=== PATIENT | female | born 1985 | race Caucasian/White ===

== ENCOUNTER → 2016-07-03 | Outpatient (CLI) | payer OTHER ==
--- NOTE | 2016-07-03 14:59 | Diagnostic Imaging Report ---
INDICATION: Dysfunctional uterine bleeding. COMPARISON: None. DISCUSSION: Transabdominal and transvaginal sonographic evaluation of the pelvis was performed. The uterus is normal in echotexture and size measuring 8.3 x 4.3 x 3.5 cm. Normal endometrial thickness measuring 0.4 cm. The ovaries appear normal in echotexture and size bilaterally with normal color Doppler blood flow. The right ovary measures 3.6 x 2.0 x 1.6 cm. The left ovary measures 3.1 x 1.7 x 1.9 cm. Prominent veins are noted within the bilateral adnexa which could be seen with chronic pelvic congestive syndrome in the appropriate clinical setting. No abnormal adnexal mass or fluid. IMPRESSION: 1. No sonographic abnormality is identified within the pelvis to explain the dysfunctional uterine bleeding. 2. Incidental note of prominent veins within the bilateral adnexa which could be associated with pelvic congestive syndrome in the appropriate clinical setting. Dictated by: Dictated on workstation # [id number]
== END ==
LOC: RAD 13:32
PROVIDERS: ATTEND Family Medicine
DX: N93.9 Abnormal uterine and vaginal bleeding, unspecified (principal)
CPT/HCPCS: 76830; 76856

== ENCOUNTER 2019-07-09 23:37 | Emergency (ER) | payer SELFPAY ==
[~2019-07-09] VITALS: Ht 167.7 cm; Wt 63.5 kg
[2019-07-10] MEDS ORDERED: methylPREDNISolone 125 MG (Solu-MEDROL) VIAL IM ONE (00:15)
[2019-07-10] MEDS ORDERED: diphenhydrAMINE 50 MG/ML INJ (BENADRYL) IVP ONE (00:15)
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
[2019-07-10] MEDS ORDERED: diphenhydrAMINE 50 MG/ML INJ (BENADRYL) IM ONE (00:30)
[2019-07-10 01:11] LABS: HEMOGLOBIN 11.9 G/DL (11.5-16.0); MEAN CORPUSCULAR HEMOGLOBIN 28 PG (25-34); WHITE BLOOD COUNT 11.4 10^3/uL (4.3-11.0)
[2019-07-10 01:12] LABS: BASOPHILS % (AUTO) 0 % (0-10); EOSINOPHILS # (AUTO) 0.8 10^3/uL (0.0-0.3); EOSINOPHILS % (AUTO) 7 % (0-10); HEMATOCRIT 37 % (35-52); LYMPHOCYTES # (AUTO) 1.7 X 10^3 (1.0-4.0); LYMPHOCYTES % (AUTO) 15 % (12-44); MEAN CORPUSCULAR HGB CONC 32 G/DL (32-36); MEAN CORPUSCULAR VOLUME 87 FL (80-99); MEAN PLATELET VOLUME 10.8 FL (7.4-10.4); MONOCYTES # (AUTO) 0.8 X 10^3 (0.0-1.0); MONOCYTES % (AUTO) 7 % (0-12); NEUTROPHILS # (AUTO) 8.1 X 10^3 (1.8-7.8); NEUTROPHILS % (AUTO) 71 % (42-75); PLATELET COUNT 437 10^3/uL (130-400); RED CELL DISTRIBUTION WIDTH 14.7 % (10.0-14.5)
[2019-07-10 01:21] LABS: BAND NEUTROPHILS 6 %; BASOPHILS % (MANUAL) 0 %; EOSINOPHILS % (MANUAL) 8 %; HYPOCHROMASIA 1+; LYMPHOCYTES % (MANUAL) 17 %; MONOCYTES % (MANUAL) 6 %; NEUTROPHILS % (MANUAL) 63 %
[2019-07-10 01:22] LABS: BILIRUBIN,TOTAL 0.2 MG/DL (0.1-1.0); BUN/CREATININE RATIO 25; CALCIUM 8.4 MG/DL (8.5-10.1); CARBON DIOXIDE 23 MMOL/L (21-32); CHLORIDE 105 MMOL/L (98-107); CREATININE SERUM 0.72 MG/DL (0.60-1.30); GFR ESTIMATED > 60; GLUCOSE 97 MG/DL (70-105); POTASSIUM 4.7 MMOL/L (3.6-5.0); SODIUM 140 MMOL/L (135-145)
[2019-07-10 01:23] LABS: ALANINE AMINOTRANSFERASE 17 U/L (0-55); ALBUMIN 3.8 GM/DL (3.2-4.5); ALKALINE PHOSPHATASE 68 U/L (40-136); TOTAL PROTEIN 6.3 GM/DL (6.4-8.2)
[2019-07-10 01:24] LABS: BILIRUBIN,URINE NEGATIVE (NEGATIVE); CLARITY,URINE SL CLOUDY; COLOR,URINE DARK YELLOW; GLUCOSE, URINE (UA) NEGATIVE (NEGATIVE); KETONES,URINE NEGATIVE (NEGATIVE); LEUKOCYTE ESTERASE ,URINE 1+ (NEGATIVE); NITRITE,URINE NEGATIVE (NEGATIVE); PROTEIN,URINE NEGATIVE (NEGATIVE)
[2019-07-10 01:25] LABS: AMPHETAMINE SCREEN, URINE NEGATIVE (NEGATIVE); BACTERIA,URINE FEW /HPF; BARBITURATE SCREEN URINE NEGATIVE (NEGATIVE); BENZODIAZEPINES SCREEN URINE NEGATIVE (NEGATIVE); CANNABINOID SCREEN, URINE NEGATIVE (NEGATIVE); COCAINE SCREEN URINE NEGATIVE (NEGATIVE); HCG,QUALITATIVE URINE NEGATIVE (NEGATIVE); METHADONE STAT NEGATIVE (NEGATIVE); METHAMPHETAMINE SCREEN URINE S NEGATIVE (NEGATIVE); OPIATE SCREEN URINE NEGATIVE (NEGATIVE); OXYCODONE STAT NEGATIVE (NEGATIVE); PROPOXYPHENE STAT NEGATIVE (NEGATIVE); TRICYCLIC ANTIDEPRESSANTS SCRE NEGATIVE (NEGATIVE)
[2019-07-10] MEDS ORDERED: PRD20T PO (01:44)
[2019-07-10] MEDS ORDERED: [UNRECOGNIZED DRUG - CODE] IV (01:44)
[2019-07-10 01:52] VITALS: BP 118/69
== END 2019-07-10 01:52 | disposition home or self-care (01) ==
LOC: EDUNIT# 23:37 → ER FS 23:39
DX: L23.9 Allergic contact dermatitis, unspecified cause (principal); L20.9 Atopic dermatitis, unspecified; N39.0 Urinary tract infection, site not specified; Z88.2 Allergy status to sulfonamides
CPT/HCPCS: 36415; 80053; 80306; 81000; 84703; 85007; 85027; 87088; 96372

== ENCOUNTER 2019-11-12 19:52 | Emergency (ER) | payer SELFPAY ==
[~2019-11-12 19:52] MED LIST: PRD20T PO; [UNRECOGNIZED DRUG - CODE] IV
[2019-11-13 11:21] LABS: CARBON DIOXIDE 20 MMOL/L (21-32); CHLORIDE 101 MMOL/L (98-107); POTASSIUM 3.3 MMOL/L (3.6-5.0); SODIUM 136 MMOL/L (135-145)
[2019-11-13 11:22] LABS: ACETAMINOPHEN < 10 UG/ML (10-30); ALANINE AMINOTRANSFERASE 9 U/L (0-55); ALBUMIN 4.7 GM/DL (3.2-4.5); ALKALINE PHOSPHATASE 59 U/L (40-136); BILIRUBIN,TOTAL 0.5 MG/DL (0.1-1.0); BUN/CREATININE RATIO 21; CALCIUM 9.1 MG/DL (8.5-10.1); CREATININE SERUM 0.75 MG/DL (0.60-1.30); GFR ESTIMATED > 60; GLUCOSE 130 MG/DL (70-105)
[2019-11-13 11:24] LABS: BASOPHILS % (AUTO) 1 % (0-10); EOSINOPHILS % (AUTO) 1 % (0-10); HEMATOCRIT 40 % (35-52); HEMOGLOBIN 13.4 G/DL (11.5-16.0); LYMPHOCYTES % (AUTO) 28 % (12-44); MEAN CORPUSCULAR HEMOGLOBIN 26 PG (25-34); MEAN CORPUSCULAR HGB CONC 33 G/DL (32-36); MEAN CORPUSCULAR VOLUME 80 FL (80-99); MEAN PLATELET VOLUME 10.6 FL (7.4-10.4); MONOCYTES % (AUTO) 9 % (0-12); NEUTROPHILS % (AUTO) 62 % (42-75); PLATELET COUNT 336 10^3/uL (130-400); RED CELL DISTRIBUTION WIDTH 14.1 % (10.0-14.5); WHITE BLOOD COUNT 8.6 10^3/uL (4.3-11.0)
[2019-11-13 11:25] LABS: BASOPHILS # (AUTO) 0.1 10^3/uL (0.0-0.1); EOSINOPHILS # (AUTO) 0.1 10^3/uL (0.0-0.3); LYMPHOCYTES # (AUTO) 2.4 X 10^3 (1.0-4.0); MONOCYTES # (AUTO) 0.8 X 10^3 (0.0-1.0); NEUTROPHILS # (AUTO) 5.3 X 10^3 (1.8-7.8)
[2019-11-13 11:26] LABS: BILIRUBIN,URINE NEGATIVE (NEGATIVE); CLARITY,URINE CLEAR; COLOR,URINE YELLOW; GLUCOSE, URINE (UA) NEGATIVE (NEGATIVE); KETONES,URINE TRACE (NEGATIVE); LEUKOCYTE ESTERASE ,URINE NEGATIVE (NEGATIVE); NITRITE,URINE NEGATIVE (NEGATIVE); PROTEIN,URINE NEGATIVE (NEGATIVE)
[2019-11-13 11:27] LABS: BACTERIA,URINE LARGE /HPF
[2019-11-13 11:28] LABS: AMPHETAMINE SCREEN, URINE NEGATIVE (NEGATIVE); BARBITURATE SCREEN URINE NEGATIVE (NEGATIVE); BENZODIAZEPINES SCREEN URINE NEGATIVE (NEGATIVE); CANNABINOID SCREEN, URINE NEGATIVE (NEGATIVE); COCAINE SCREEN URINE NEGATIVE (NEGATIVE); HCG,QUALITATIVE URINE NEGATIVE (NEGATIVE); METHADONE STAT NEGATIVE (NEGATIVE); METHAMPHETAMINE SCREEN URINE S NEGATIVE (NEGATIVE); OPIATE SCREEN URINE NEGATIVE (NEGATIVE); OXYCODONE STAT NEGATIVE (NEGATIVE); PROPOXYPHENE STAT NEGATIVE (NEGATIVE); TRICYCLIC ANTIDEPRESSANTS SCRE NEGATIVE (NEGATIVE)
== END 2019-11-13 04:10 | disposition home or self-care (01) ==
LOC: ER FS 19:52
DX: F20.0 Paranoid schizophrenia (principal)
CPT/HCPCS: 36415; 80053; 80306; 81000; 84703; 85025; 99282; G0480 ×2; 80320; 80329

== ENCOUNTER 2020-11-27 09:15 | Emergency (ER) | payer SELFPAY ==
[~2020-11-27] VITALS: Ht 167.7 cm; Wt 52.2 kg
[2020-11-27 09:15] VITALS: BP 117/90
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
[2020-11-27 09:37] LABS: BILIRUBIN,URINE NEGATIVE (NEGATIVE); CLARITY,URINE CLEAR; COLOR,URINE YELLOW; GLUCOSE, URINE (UA) NEGATIVE (NEGATIVE); HCG,QUALITATIVE URINE NEGATIVE (NEGATIVE); KETONES,URINE NEGATIVE (NEGATIVE); LEUKOCYTE ESTERASE ,URINE 1+ (NEGATIVE); NITRITE,URINE NEGATIVE (NEGATIVE); PROTEIN,URINE NEGATIVE (NEGATIVE)
[2020-11-27 09:38] LABS: BACTERIA,URINE MODERATE /HPF
[2020-11-27 09:48] LABS: AMPHETAMINE SCREEN, URINE POSITIVE (NEGATIVE); BARBITURATE SCREEN URINE NEGATIVE (NEGATIVE); BENZODIAZEPINES SCREEN URINE NEGATIVE (NEGATIVE); CANNABINOID SCREEN, URINE NEGATIVE (NEGATIVE); COCAINE SCREEN URINE NEGATIVE (NEGATIVE); METHADONE STAT NEGATIVE (NEGATIVE); METHAMPHETAMINE SCREEN URINE S POSITIVE (NEGATIVE); OPIATE SCREEN URINE NEGATIVE (NEGATIVE); OXYCODONE STAT NEGATIVE (NEGATIVE); PROPOXYPHENE STAT NEGATIVE (NEGATIVE); TRICYCLIC ANTIDEPRESSANTS SCRE NEGATIVE (NEGATIVE)
[2020-11-27] MEDS ORDERED: ACETAMINOPHEN 500 MG TAB (TYLENOL) PO ONE (10:45)
== END 2020-11-27 11:33 | disposition home or self-care (01) ==
LOC: EDUNIT# 09:15 → ER FS 09:16
DX: F15.10 Other stimulant abuse, uncomplicated (principal); Z79.52 Long term (current) use of systemic steroids
CPT/HCPCS: 80306; 81000; 84703; 87088; 99283

== ENCOUNTER 2021-04-19 13:01 | Emergency (ER) | payer SELFPAY ==
[2021-04-19 13:30] VITALS: BP 141/98
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
== END 2021-04-19 13:47 | disposition home or self-care (01) ==
LOC: EDUNIT# 13:01 → ER FS 13:02
DX: F15.10 Other stimulant abuse, uncomplicated (principal); L30.9 Dermatitis, unspecified
CPT/HCPCS: 84703; 99282

== ENCOUNTER 2021-05-03 08:54 | Emergency (ER) | payer OTHER ==
[~2021-05-03] VITALS: Ht 168 cm; Wt 68.0 kg
[2021-05-03 10:47] LABS: BASOPHILS % (AUTO) 1 % (0-10); EOSINOPHILS # (AUTO) 0.2 10^3/uL (0.0-0.3); EOSINOPHILS % (AUTO) 2 % (0-10); HEMATOCRIT 40 % (35-52); HEMOGLOBIN 12.6 g/dL (11.5-16.0); LYMPHOCYTES # (AUTO) 2.4 10^3/uL (1.0-4.0); LYMPHOCYTES % (AUTO) 30 % (12-44); MEAN CORPUSCULAR HEMOGLOBIN 27 pg (25-34); MEAN CORPUSCULAR HGB CONC 32 g/dL (32-36); MEAN CORPUSCULAR VOLUME 86 fL (80-99); MEAN PLATELET VOLUME 10.3 fL (9.0-12.2); MONOCYTES # (AUTO) 0.7 10^3/uL (0.0-1.0); MONOCYTES % (AUTO) 8 % (0-12); NEUTROPHILS # (AUTO) 4.7 10^3/uL (1.8-7.8); NEUTROPHILS % (AUTO) 59 % (42-75); PLATELET COUNT 379 10^3/uL (130-400); WHITE BLOOD COUNT 7.9 10^3/uL (4.3-11.0)
[2021-05-03 10:56] LABS: ALBUMIN 4.5 GM/DL (3.2-4.5); CHLORIDE 104 MMOL/L (98-107); POTASSIUM 4.2 MMOL/L (3.6-5.0); SODIUM 139 MMOL/L (135-145)
[2021-05-03 10:58] LABS: CALCIUM 9.5 MG/DL (8.5-10.1)
[2021-05-03 10:59] LABS: GLUCOSE 89 MG/DL (70-105); TOTAL PROTEIN 7.8 GM/DL (6.4-8.2)
[2021-05-03 11:00] LABS: CARBON DIOXIDE 25 MMOL/L (21-32)
[2021-05-03 11:01] LABS: BILIRUBIN,TOTAL 0.4 MG/DL (0.1-1.0)
[2021-05-03 11:03] LABS: ALKALINE PHOSPHATASE 69 U/L (40-136); CREATININE SERUM 0.69 MG/DL (0.60-1.30); GFR ESTIMATED 115
[2021-05-03 11:04] LABS: BUN/CREATININE RATIO 22
[2021-05-03 11:05] LABS: SALICYLATE < 5.0 MG/DL (5.0-20.0)
[2021-05-03 11:06] LABS: ALANINE AMINOTRANSFERASE 18 U/L (0-55)
[2021-05-03 11:08] LABS: ACETAMINOPHEN < 10 UG/ML (10-30)
[2021-05-03 11:22] LABS: BILIRUBIN,URINE NEGATIVE (NEGATIVE); CLARITY,URINE CLEAR; COLOR,URINE YELLOW; GLUCOSE, URINE (UA) NEGATIVE (NEGATIVE); KETONES,URINE NEGATIVE (NEGATIVE); LEUKOCYTE ESTERASE ,URINE 1+ (NEGATIVE); NITRITE,URINE NEGATIVE (NEGATIVE); PH,URINE 6.5 (5-9); PROTEIN,URINE NEGATIVE (NEGATIVE)
[2021-05-03 11:29] LABS: HCG,QUALITATIVE URINE NEGATIVE (NEGATIVE)
[2021-05-03 11:37] LABS: BACTERIA,URINE TRACE /HPF; SQUAMOUS EPITHELIAL CELL,UR 0-2 /HPF; WBC,URINE 0-2 /HPF
[2021-05-03 11:38] LABS: AMPHETAMINE SCREEN, URINE NEGATIVE (NEGATIVE); BARBITURATE SCREEN URINE NEGATIVE (NEGATIVE); BENZODIAZEPINES SCREEN URINE NEGATIVE (NEGATIVE); CANNABINOID SCREEN, URINE NEGATIVE (NEGATIVE); COCAINE SCREEN URINE NEGATIVE (NEGATIVE); METHADONE STAT NEGATIVE (NEGATIVE); METHAMPHETAMINE SCREEN URINE S NEGATIVE (NEGATIVE); OPIATE SCREEN URINE NEGATIVE (NEGATIVE); OXYCODONE STAT NEGATIVE (NEGATIVE); PROPOXYPHENE STAT NEGATIVE (NEGATIVE); TRICYCLIC ANTIDEPRESSANTS SCRE NEGATIVE (NEGATIVE)
--- NOTE | 2021-05-03 11:50 | ED Psychosocial ---
General Chief Complaint: Psych/Social Disorder Stated Complaint: MENTAL HEALTH EVAL Nursing Triage Note: PT STATES SHE IS SEEING THINGS, FEELS LIKE THERE IS SOMEONE NEXT TO HER BUT NOT HEARING ANYTHING. NO THOUGHTS OF HARM TO SELF OR OTHERS, STATES LIVING IN A [facility], FEELS LIKE THEY WANT CONTROL OVER HER THERE. NOT ON ANY MEDICATION BUT FEELS LIKE SHE NEEDS SOMETHING TO HELP HER RELAX. [facility], [place], PSYCH INTAKE ON 06/01 AT 1100 A.M. History of Present Illness Date Seen by Provider: May 03, 2021 Time Seen by Provider: 11:15 Initial Comments 36 yr F with PMH of psych disorder who was on Lamictal and Buspar as per pt, and has not had it for a few months, is here with c/o feeling there is someone always standing by her ears and telling her something, but she can't hear what they are saying. Pt states it bothers her so much, and it has been going on for weeks to months. Denies thoughts of harm to self or others. Pt lives in a safe home and does not regularly see her doctor but she does have a psychiatrist she used to see in [place]. Pt took meth 2 weeks ago. Allergies and Home Medications Allergies Coded Allergies: Sulfa (Sulfonamide Antibiotics) (Verified Allergy, Unknown, 07/09/19) Patient Home Medication List Home Medication List Reviewed: Yes Diphenhydramine in 0.9 % NaCl (Diphenhydramine 50 mg/50 ml-Ns) 50 Mg/50 Ml Piggyback, 50 MG IV TID Prescribed by: GUNNER LAMBERT on 07/10/19 014 Nitrofurantoin Monohyd/M-Cryst (Nitrofurantoin [place]-Mcr 100 mg) 100 Mg Capsule, 100 MG PO BID Prescribed by: SHERRY JACK MD on 05/03/21 1249 Prednisone (Prednisone) 20 Mg Tab, 40 MG PO DAILY Prescribed by: GUNNER LAMBERT on 07/10/19 014 Review of Systems Constitutional: no symptoms reported EENTM: no symptoms reported Respiratory: no symptoms reported Cardiovascular: no symptoms reported Gastrointestinal: no symptoms reported Genitourinary: no symptoms reported : No Musculoskeletal: no symptoms reported Skin: no symptoms reported Psychiatric/Neurological: Other (feels someone is always by her ear) All Other Systems Reviewed Negative Unless Noted: Yes Past Bobtjsl-Ixxymw-Syrnwk Hx Patient Social History Tobacco Use?: No Substance use?: No Alcohol Use?: No Pt feels they are or have been: Yes Immunizations Up To Date First/Initial COVID19 Vaccinat: 2020 Second COVID19 Vaccination [place]: 2020 Third COVID19 Vaccination Date: 2020 Seasonal Allergies Seasonal Allergies: No Past Medical History Surgeries: No Respiratory: No Cardiac: No Neurological: No Last Menstrual Period: May 03, 2021 Sexually Transmitted Disease: Yes (HERPES) HIV/AIDS: No Genitourinary: No Gastrointestinal: No Musculoskeletal: No Endocrine: No HEENT: No Cancer: No Psychosocial: Yes ADD/ADHD, Bipolar Integumentary: Yes Herpes Blood Disorders: No Physical Exam Vital Signs - First Documented 05/03/21 09:25 Temp 36.5 Pulse 68 Resp 18 B/P (MAP) 119/88 (98) Pulse Ox 100 O2 Delivery Room Air Capillary Refill : Less Than 3 Seconds Height, Weight, BMI Height: '" Weight: lbs. oz. 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, no motor/sensory deficits, alert, oriented x 3 Appearance/Memory: appropriate appearance Behavior/Eye Contact: cooperative Thoughts/Hallucinations: other (seeing or sensing a person near her) Skin: normal color Lymphatic: no adenopathy Progress/Results/Core Measures Results/Orders Lab Results Laboratory Tests Test 05/03/21 09:05 05/03/21 10:38 05/03/21 11:52 Range/Units Urine Color YELLOW Urine Clarity CLEAR Urine pH 6.5 5-9 Urine Specific [place] <=1.005 1.016-1.022 Urine Protein NEGATIVE NEGATIVE Urine Glucose (UA) NEGATIVE NEGATIVE Urine Ketones NEGATIVE NEGATIVE Urine Nitrite NEGATIVE NEGATIVE Urine Bilirubin NEGATIVE NEGATIVE Urine Urobilinogen 0.2 < = 1.0 MG/DL Urine Leukocyte Esterase 1+ H NEGATIVE Urine RBC (Auto) NEGATIVE NEGATIVE Urine RBC NONE /HPF Urine WBC 0-2 /HPF Urine Squamous Epithelial Cells 0-2 /HPF Urine Crystals NONE /LPF Urine Bacteria TRACE /HPF Urine Casts NONE /LPF Urine Mucus NEGATIVE /LPF Urine Culture Indicated NO Urine Test NEGATIVE NEGATIVE Urine Opiates Screen NEGATIVE NEGATIVE Urine Oxycodone Screen NEGATIVE NEGATIVE Urine Methadone Screen NEGATIVE NEGATIVE Urine Propoxyphene Screen NEGATIVE NEGATIVE Urine Barbiturates Screen NEGATIVE NEGATIVE Ur Tricyclic Antidepressants Screen NEGATIVE NEGATIVE Urine Phencyclidine Screen NEGATIVE NEGATIVE Urine Amphetamines Screen NEGATIVE NEGATIVE Urine Methamphetamines Screen NEGATIVE NEGATIVE Urine Benzodiazepines Screen NEGATIVE NEGATIVE Urine Cocaine Screen NEGATIVE NEGATIVE Urine Cannabinoids Screen NEGATIVE NEGATIVE White Blood Count 7.9 4.3-11.0 10^3/uL Red Blood Count 4.62 3.80-5.11 10^6/uL Hemoglobin 12.6 11.5-16.0 g/dL Hematocrit 40 35-52 % Mean Corpuscular Volume 86 80-99 fL Mean Corpuscular Hemoglobin 27 25-34 pg Mean Corpuscular Hemoglobin Concent 32 32-36 g/dL Red Cell Distribution Width 15.9 H 10.0-14.5 % Platelet Count 379 130-400 10^3/uL Mean Platelet Volume 10.3 9.0-12.2 fL Immature Granulocyte % (Auto) 0 % Neutrophils (%) (Auto) 59 42-75 % Lymphocytes (%) (Auto) 30 12-44 % Monocytes (%) (Auto) 8 0-12 % Eosinophils (%) (Auto) 2 0-10 % Basophils (%) (Auto) 1 0-10 % Neutrophils # (Auto) 4.7 1.8-7.8 10^3/uL Lymphocytes # (Auto) 2.4 1.0-4.0 10^3/uL Monocytes # (Auto) 0.7 0.0-1.0 10^3/uL Eosinophils # (Auto) 0.2 0.0-0.3 10^3/uL Basophils # (Auto) 0.0 0.0-0.1 10^3/uL Immature Granulocyte # (Auto) 0.0 0.0-0.1 10^3/uL Sodium Level 139 135-145 MMOL/L Potassium Level 4.2 3.6-5.0 MMOL/L Chloride Level 104 98-107 MMOL/L Carbon Dioxide Level 25 21-32 MMOL/L Anion Gap 10 5-14 MMOL/L Blood Urea Nitrogen 15 7-18 MG/DL Creatinine 0.69 0.60-1.30 MG/DL Estimat Glomerular Filtration Rate 115 BUN/Creatinine Ratio 22 Glucose Level 89 70-105 MG/DL Calcium Level 9.5 8.5-10.1 MG/DL Corrected Calcium 9.1 8.5-10.1 MG/DL Total Bilirubin 0.4 0.1-1.0 MG/DL Aspartate Amino Transf (AST/SGOT) 18 5-34 U/L Alanine Aminotransferase (ALT/SGPT) 18 0-55 U/L Alkaline Phosphatase 69 40-136 U/L Total Protein 7.8 6.4-8.2 GM/DL Albumin 4.5 3.2-4.5 GM/DL Salicylates Level < 5.0 L 5.0-20.0 MG/DL Acetaminophen Level < 10 L 10-30 UG/ML Serum Alcohol < 10 <10 MG/DL SARS-CoV-2 RNA (RT-PCR) See Comment Not Detecte My Orders Orders - SHERRY JACK MD Covid 19 Inhouse Test (05/03/21 11:38) Vital Signs/I&O 05/03/21 09:25 Temp 36.5 Pulse 68 Resp 18 B/P (MAP) 119/88 (98) Pulse Ox 100 O2 Delivery Room Air Blood Pressure Mean: 98 Progress Progress Note : Progress Note 1. ANXIETY AND HALLUCINATION: -Urine drug screen, UA, urine : Unremarkable - Psych outpatient at [facility] set up today at 1430 today 2. UTI: - UA positive for LE and bacteria - Nitrofurantoin 100mg BID for 7 days - Adequate fluids recommended Initial ECG Impression Date: May 03, 2021 Initial ECG Impression Time: 10:32 Initial ECG Rate: 64 Initial ECG Rhythm: Normal Sinus Initial ECG Intervals: Normal Initial ECG Impression: Normal Initial ECG Comparisson: No Previous ECG Available CT Read Date: May 03, 2021 CT Read Time: 10:36 Departure Impression Primary Impression: Hallucinations Additional Impressions: Anxiety UTI (urinary tract infection) Qualified Codes: N30.00 - Acute cystitis without hematuria Disposition: 01 HOME, SELF-CARE Condition: Stable Departure-Patient Inst. Referrals: [facility] (PCP/Family) Primary Care Physician Patient Instructions: Anxiety, Adult (DC), Urinary Tract Infection, Adult ED Add. Discharge Instructions: Pt will be following up with [facility] at 14:30 today. ADDRESS: [address] [place] [address] All discharge instructions reviewed with patient. Voiced understanding. Scripts Nitrofurantoin Monohyd/M-Cryst (Nitrofurantoin [place]-Mcr 100 mg) 100 Mg Capsule 100 MG PO BID for 7 Days, #14 CAP Prov: SHERRY JACK MD 05/03/21 SHERRY JACK MD May 03, 2021 11:50
[2021-05-03] MEDS ORDERED: NITR100C10 PO (12:49)
[2021-05-03 13:29] VITALS: BP 118/76
== END 2021-05-03 13:29 | disposition home or self-care (01) ==
LOC: EDUNIT# 08:54 → ER 08:56
DX: R44.3 Hallucinations, unspecified (principal); F41.9 Anxiety disorder, unspecified; N39.0 Urinary tract infection, site not specified
CPT/HCPCS: 80053; 80306; 81000; 84703; 85025; 87636; 93005; 99283; G0480 ×3; 36415; 80320; 80329

== ENCOUNTER 2021-05-03 18:23 | Emergency (ER) | payer OTHER ==
[~2021-05-03] VITALS: Ht 167.7 cm; Wt 68.4 kg
[~2021-05-03 18:23] MED LIST changes: +NITR100C10 PO
[2021-05-03 18:43] LABS: BILIRUBIN,URINE NEGATIVE (NEGATIVE); CLARITY,URINE CLEAR; COLOR,URINE YELLOW; GLUCOSE, URINE (UA) NEGATIVE (NEGATIVE); KETONES,URINE NEGATIVE (NEGATIVE); LEUKOCYTE ESTERASE ,URINE 2+ (NEGATIVE); NITRITE,URINE NEGATIVE (NEGATIVE); PH,URINE 6.5 (5-9); PROTEIN,URINE NEGATIVE (NEGATIVE)
[2021-05-03 18:52] LABS: BACTERIA,URINE TRACE /HPF
[2021-05-03 18:57] LABS: AMPHETAMINE SCREEN, URINE NEGATIVE (NEGATIVE); BARBITURATE SCREEN URINE NEGATIVE (NEGATIVE); BENZODIAZEPINES SCREEN URINE NEGATIVE (NEGATIVE); CANNABINOID SCREEN, URINE NEGATIVE (NEGATIVE); COCAINE SCREEN URINE NEGATIVE (NEGATIVE); METHADONE STAT NEGATIVE (NEGATIVE); METHAMPHETAMINE SCREEN URINE S NEGATIVE (NEGATIVE); OPIATE SCREEN URINE NEGATIVE (NEGATIVE); OXYCODONE STAT NEGATIVE (NEGATIVE); PROPOXYPHENE STAT NEGATIVE (NEGATIVE); TRICYCLIC ANTIDEPRESSANTS SCRE NEGATIVE (NEGATIVE)
[2021-05-03] MEDS ORDERED: QUEtiapine 25 MG (SEROquel) TAB IMMEDIATE RELEASE PO SCH (19:00)
--- NOTE | 2021-05-03 19:03 | ED Psychosocial ---
General Chief Complaint: Psych/Social Disorder Stated Complaint: PSYCH EVAL Source: patient Exam Limitations: no limitations History of Present Illness Date Seen by Provider: May 03, 2021 Time Seen by Provider: 18:45 Initial Comments Patient to the ER by private conveyance from clinic meeting with [facility] and chief complaint that she would like some counter medication to help her with the auditory hallucinations and visual hallucinations. She says her last use of methamphetamines was 2 weeks ago. In the past she was on gabapentin, Wellbutrin and Latuda. She has not been on medications for a long time. She has tried Geodon in the past and her mother told her to get off of it because it made her very irritable and "bitchy". She was seen here earlier in the day and was medically cleared. She was then unable to be screened by [facility] so was sent to a nurse practitioner for an appointment at 2:30 in the afternoon. Patient states she went there and had a very good productive meeting and discussed the case and has an appointment at 3:00 tomorrow to start medications but she says she would like to start some medications now. She has concerns about being in a safe house because she has visual hallucinations that man is coming up and getting in her face wanting to traffic her and other people. No one else sees this person. The audio hallucinations are nothing specific and she knows they are not her own voice but they are also not telling her to do anything. She is not having any suicidal or homicidal ideation. She is agreeable to taking some medication tonight and making her appointment tomorrow. She has a ride to the safe house. Allergies and Home Medications Allergies Coded Allergies: Sulfa (Sulfonamide Antibiotics) (Verified Allergy, Unknown, 07/09/19) Patient Home Medication List Home Medication List Reviewed: Yes Diphenhydramine in 0.9 % NaCl (Diphenhydramine 50 mg/50 ml-Ns) 50 Mg/50 Ml Piggyback, 50 MG IV TID Prescribed by: GUNNER LAMBERT on 07/10/19 0144 Nitrofurantoin Monohyd/M-Cryst (Nitrofurantoin [place]-Mcr 100 mg) 100 Mg Capsule, 100 MG PO BID Prescribed by: SHERRY JACK MD on 05/03/21 1249 Prednisone (Prednisone) 20 Mg Tab, 40 MG PO DAILY Prescribed by: GUNNER LAMBERT on 07/10/19 0144 Review of Systems Constitutional: No chills, No diaphoresis EENTM: No ear discharge, No hearing loss Respiratory: No cough, No short of breath Cardiovascular: No chest pain, No edema Gastrointestinal: No abdominal pain, No constipation Genitourinary: No decreased output, No discharge Musculoskeletal: No back pain, No joint pain Psychiatric/Neurological: See HPI All Other Systems Reviewed Negative Unless Noted: Yes Past Hyintep-Rgkmpa-Bpxtxn Hx Patient Social History Tobacco Use?: No Use of E-Cig and/or Vaping dev: No Substance use?: Yes Substance type: Methamphetamine Substance frequency: Once in a while Immunizations Up To Date First/Initial COVID19 Vaccinat: 2020 Second COVID19 Vaccination [place]: 2020 Third COVID19 Vaccination Date: 2020 Seasonal Allergies Seasonal Allergies: No Past Medical History Surgeries: No Respiratory: No Cardiac: No Neurological: No Sexually Transmitted Disease: Yes (HERPES) HIV/AIDS: No Genitourinary: No Gastrointestinal: No Musculoskeletal: No Endocrine: No HEENT: No Cancer: No Psychosocial: Yes ADD/ADHD, Bipolar Integumentary: Yes Herpes Blood Disorders: No Physical Exam Vital Signs - First Documented 05/03/21 18:37 Temp 36.4 Pulse 92 Resp 18 B/P (MAP) 113/80 (91) Pulse Ox 99 O2 Delivery Room Air Capillary Refill : Height, Weight, BMI Height: '" Weight: lbs. oz. kg; 24.00 BMI Method: General Appearance: WD/WN, no apparent distress HEENT: PERRL/EOMI, pharynx normal Neck: full range of motion, supple, normal inspection Respiratory: lungs clear, normal breath sounds, no respiratory distress, no accessory muscle use Cardiovascular: normal peripheral pulses, regular rate, rhythm Neurologic/Psychiatric: alert, normal mood/affect, oriented x 3 Appearance/Memory: appropriate appearance; No denies illness Behavior/Eye Contact: cooperative, good eye contact, normal speech Thoughts/Hallucinations: paranoid, other (Denies suicidal or homicidal ideation) Skin: normal color, warm/dry Progress/Results/Core Measures Results/Orders Lab Results Laboratory Tests Test 05/03/21 18:38 Range/Units Urine Color YELLOW Urine Clarity CLEAR Urine pH 6.5 5-9 Urine Specific [place] 1.010 L 1.016-1.022 Urine Protein NEGATIVE NEGATIVE Urine Glucose (UA) NEGATIVE NEGATIVE Urine Ketones NEGATIVE NEGATIVE Urine Nitrite NEGATIVE NEGATIVE Urine Bilirubin NEGATIVE NEGATIVE Urine Urobilinogen 0.2 < = 1.0 MG/DL Urine Leukocyte Esterase 2+ H NEGATIVE Urine RBC (Auto) 1+ H NEGATIVE Urine RBC NONE /HPF Urine WBC 5-10 H /HPF Urine Squamous Epithelial Cells 2-5 /HPF Urine Crystals NONE /LPF Urine Bacteria TRACE /HPF Urine Casts NONE /LPF Urine Mucus NEGATIVE /LPF Urine Culture Indicated YES Urine Opiates Screen NEGATIVE NEGATIVE Urine Oxycodone Screen NEGATIVE NEGATIVE Urine Methadone Screen NEGATIVE NEGATIVE Urine Propoxyphene Screen NEGATIVE NEGATIVE Urine Barbiturates Screen NEGATIVE NEGATIVE Ur Tricyclic Antidepressants Screen NEGATIVE NEGATIVE Urine Phencyclidine Screen NEGATIVE NEGATIVE Urine Amphetamines Screen NEGATIVE NEGATIVE Urine Methamphetamines Screen NEGATIVE NEGATIVE Urine Benzodiazepines Screen NEGATIVE NEGATIVE Urine Cocaine Screen NEGATIVE NEGATIVE Urine Cannabinoids Screen NEGATIVE NEGATIVE My Orders Orders - DANIELA JOHNSON Ua Culture If Indicated (05/03/21 18:26) Drug Screen Stat (Urine) (05/03/21 18:26) Urine Culture (05/03/21 18:38) Quetiapine Immediate Release (Seroquel I (05/03/21 19:00) Vital Signs/I&O 05/03/21 18:37 Temp 36.4 Pulse 92 Resp 18 B/P (MAP) 113/80 (91) Pulse Ox 99 O2 Delivery Room Air Progress Progress Note : Time: 19:02 Progress Note Seroquel immediate release 25 mg x 1 and follow-up tomorrow with psychiatry. Patient is not having any urinary symptoms nor is she having any symptoms or signs of infection. Earlier UA was unremarkable. Plan to follow-up with culture results. Departure Impression Primary Impression: Hallucinations Additional Impression: Paranoia Disposition: 01 HOME, SELF-CARE Condition: Stable Departure-Patient Inst. Decision time for Depature: 19:22 Referrals: [facility] (PCP/Family) Primary Care Physician Patient Instructions: Evaluating Memory and Thinking Problems Add. Discharge Instructions: Keep your follow-up appointment tomorrow at 3 in the afternoon. If you are not able to make it to your appointment then return to the ER for further evaluation and management. All discharge instructions reviewed with patient and/or family. Voiced unders tanding. DANIELA JOHNSON May 03, 2021 19:03
[2021-05-03 19:44] VITALS: BP 113/80
== END 2021-05-03 19:44 | disposition home or self-care (01) ==
LOC: EDUNIT# 18:23 → ER 18:25
DX: R44.0 Auditory hallucinations (principal)
CPT/HCPCS: 80306; 81000; 87088; 99283

== ENCOUNTER 2021-07-18 17:08 | Emergency (ER) | payer OTHER ==
[~2021-07-18] VITALS: Ht 167.7 cm; Wt 78.9 kg
--- NOTE | 2021-07-18 18:12 | ED Upper Extremity ---
General Chief Complaint: Upper Extremity Stated Complaint: RING TO TIGHT Nursing Triage Note: PT AMB TO RM 9 WITH COMPLAINT OF RING STUCK ON LEFT INDEX FINGER. Source: patient Exam Limitations: no limitations History of Present Illness Date Seen by Provider: Jul 18, 2021 Time Seen by Provider: 18:11 Initial Comments Patient is a 36-year-old female presents ED with a ring stuck on her left ring finger. She states she put the ring on last night. She woke this morning with pain and swelling of the left ring finger. Attempted to use floss to remove the ring will but was unsuccessful. Normal active range of motion of the finger Allergies and Home Medications Allergies Coded Allergies: Sulfa (Sulfonamide Antibiotics) (Verified Allergy, Unknown, 07/09/19) Patient Home Medication List Home Medication List Reviewed: Yes Diphenhydramine in 0.9 % NaCl (Diphenhydramine 50 mg/50 ml-Ns) 50 Mg/50 Ml Piggyback, 50 MG IV TID Prescribed by: GUNNER LAMBERT on 07/10/19 0144 Nitrofurantoin Monohyd/M-Cryst (Nitrofurantoin [place]-Mcr 100 mg) 100 Mg Capsule, 100 MG PO BID Prescribed by: SHERRY JACK MD on 05/03/21 1249 Prednisone (Prednisone) 20 Mg Tab, 40 MG PO DAILY Prescribed by: GUNNER LAMBERT on 07/10/19 0144 Review of Systems Constitutional: No chills, No diaphoresis, No malaise, No weakness EENTM: No no symptoms reported Respiratory: No cough, No dyspnea on exertion, No orthopnea Cardiovascular: No chest pain Gastrointestinal: No abdominal pain, No diarrhea, No nausea, No vomiting Genitourinary: No decreased output, No discharge Musculoskeletal: No back pain, No joint pain; joint swelling, muscle pain Skin: change in color, other (swelling) All Other Systems Reviewed Negative Unless Noted: Yes Past Ltlomrq-Fihijc-Mfsigr Hx Patient Social History Tobacco Use?: No Use of E-Cig and/or Vaping dev: No Substance use?: No Alcohol Use?: No Pt feels they are or have been: No Immunizations Up To Date First/Initial COVID19 Vaccinat: 2020 Second COVID19 Vaccination [place]: 2020 Third COVID19 Vaccination Date: 2020 Seasonal Allergies Seasonal Allergies: No Past Medical History Surgeries: No Respiratory: No Cardiac: No Neurological: No Sexually Transmitted Disease: Yes (HERPES) HIV/AIDS: No Genitourinary: No Gastrointestinal: No Musculoskeletal: No Endocrine: No HEENT: No Cancer: No Psychosocial: Yes ADD/ADHD, Bipolar Integumentary: Yes Herpes Blood Disorders: No Physical Exam Vital Signs Vital Signs - First Documented 07/18/21 17:16 Pulse 68 Resp 20 B/P (MAP) 102/68 (79) Pulse Ox 98 O2 Delivery Room Air Capillary Refill : Less Than 3 Seconds Height, Weight, BMI Height: '" Weight: lbs. oz. kg; 28.00 BMI Method: General Appearance: WD/WN, no apparent distress HEENT: PERRL/EOMI, normal ENT inspection, TMs normal, pharynx normal Neck: non-tender, full range of motion, supple, normal inspection Cardiovascular: regular rate, rhythm, no edema, no gallop, no JVD Respiratory: chest non-tender, lungs clear, normal breath sounds, no respiratory distress, no accessory muscle use Gastrointestinal: normal bowel sounds, non tender, soft, no organomegaly Back: normal inspection, no CVA tenderness, no vertebral tenderness Hand: swelling (Swelling to the left index finger with a ring proximal. 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 Patient tolerated procedure well. No evidence of cellulitis. Normal active range of motion left ring finger. Outpatient follow-up as needed Impression Primary Impression: Finger pain Disposition: 01 HOME, SELF-CARE Condition: Stable Departure-Patient Inst. Decision time for Depature: 18:14 Referrals: [facility] (PCP/Family) Primary Care Physician Patient Instructions: Common Finger Injuries ED CAMILLA ESTRADA Jul 18, 2021 18:12
[2021-07-18 18:30] VITALS: BP 102/68
== END 2021-07-18 18:30 | disposition home or self-care (01) ==
LOC: EDUNIT# 17:08 → ER 17:11
DX: M79.645 Pain in left finger(s) (principal)
CPT/HCPCS: 99281

== ENCOUNTER 2021-08-02 10:17 | Emergency (ER) | payer OTHER ==
[~2021-08-02] VITALS: Ht 167 cm; Wt 79.0 kg
--- NOTE | 2021-08-02 11:16 | ED Psychosocial ---
General Chief Complaint: Psych/Social Disorder Stated Complaint: PSYCH EVAL Nursing Triage Note: PT AMB TO [facility] 6, PT STATES SHE IS HAS SCHIZO-ANXIETY HX. PT STATES HAS NOT BEEN TAKING MEDS SHE SHOULD. STATES LIKE SHE WANTS TO HIT HERSELF BUT HASNT. Source: patient Exam Limitations: no limitations History of Present Illness Date Seen by Provider: August 02, 2021 Time Seen by Provider: 11:12 Initial Comments Patient is a 36-year-old female with a history of schizophrenia, anxiety who presents to ED concern for thoughts of wanting to hit herself. This started over the weekend and progressed to got worse. She contacted [facility] who recommended come to the hospital. She states she has no thoughts of wanting to kill herself or anyone else. Denies any drug use or alcohol use. She states she is currently on medication for anxiety and her schizophrenia but cannot recall what she is taking. She denies of any other complaints such as chest pain, abdominal pain vomiting, diarrhea, headache, diarrhea, hallucinations, abdominal pain. Allergies and Home Medications Allergies Coded Allergies: Sulfa (Sulfonamide Antibiotics) (Verified Allergy, Unknown, 07/09/19) Patient Home Medication List Home Medication List Reviewed: Yes Diphenhydramine in 0.9 % NaCl (Diphenhydramine 50 mg/50 ml-Ns) 50 Mg/50 Ml Piggyback, 50 MG IV TID Prescribed by: GUNNER LAMBERT on 07/10/19 014 Nitrofurantoin Monohyd/M-Cryst (Nitrofurantoin Ch[place]-Mcr 100 mg) 100 Mg Capsule, 100 MG PO BID Prescribed by: SHERRY JACK MD on 05/03/21 1249 Prednisone (Prednisone) 20 Mg Tab, 40 MG PO DAILY Prescribed by: GUNNER LAMBERT on 07/10/19 014 Review of Systems Constitutional: No chills, No diaphoresis EENTM: No blurred vision, No double vision, No mouth pain, No mouth swelling Respiratory: No cough, No dyspnea on exertion Cardiovascular: No chest pain Gastrointestinal: No abdominal pain, No diarrhea, No nausea, No vomiting Genitourinary: No decreased output, No discharge Musculoskeletal: No back pain, No joint pain Skin: No change in color, No change in hair/nails All Other Systems Reviewed Negative Unless Noted: Yes Past Lghyhbi-Vtrhpy-Bkoqtp Hx Patient Social History Tobacco Use?: No Substance use?: No Alcohol Use?: No Pt feels they are or have been: No Immunizations Up To Date First/Initial COVID19 Vaccinat: 2020 Second COVID19 Vaccination [place]: 2020 Third COVID19 Vaccination Date: 2020 Seasonal Allergies Seasonal Allergies: No Past Medical History Surgery/Hospitalization HX: SCHIZOPHRENIA, ANXIETY Surgeries: No Respiratory: No Cardiac: No Neurological: No Sexually Transmitted Disease: Yes (HERPES) HIV/AIDS: No Genitourinary: No Gastrointestinal: No Musculoskeletal: No Endocrine: No HEENT: No Cancer: No Psychosocial: Yes ADD/ADHD, Bipolar Integumentary: Yes Herpes Blood Disorders: No Physical Exam Vital Signs - First Documented 08/02/21 10:22 Temp 36.2 Pulse 68 Resp 18 B/P (MAP) 118/77 (91) Pulse Ox 98 Capillary Refill : Less Than 3 Seconds Height, Weight, BMI Height: '" Weight: lbs. oz. 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, no motor/sensory deficits, alert, normal mood/affect, oriented x 3 Appearance/Memory: appropriate insight Behavior/Eye Contact: cooperative, good eye contact Thoughts/Hallucinations: normal thought pattern Skin: normal color, warm/dry Progress/Results/Core Measures Results/Orders Lab Results Laboratory Tests Test 08/02/21 11:21 Range/Units Urine Color YELLOW Urine Clarity CLEAR Urine pH 5.0 5-9 Urine Specific [place] 1.010 L 1.016-1.022 Urine Protein NEGATIVE NEGATIVE Urine Glucose (UA) NEGATIVE NEGATIVE Urine Ketones NEGATIVE NEGATIVE Urine Nitrite NEGATIVE NEGATIVE Urine Bilirubin NEGATIVE NEGATIVE Urine Urobilinogen 0.2 < = 1.0 MG/DL Urine Leukocyte Esterase 1+ H NEGATIVE Urine RBC (Auto) NEGATIVE NEGATIVE Urine RBC NONE /HPF Urine WBC NONE /HPF Urine Squamous Epithelial Cells 2-5 /HPF Urine Crystals NONE /LPF Urine Bacteria FEW H /HPF Urine Casts NONE /LPF Urine Mucus NEGATIVE /LPF Urine Culture Indicated NO Urine Test NEGATIVE NEGATIVE Urine Opiates Screen NEGATIVE NEGATIVE Urine Oxycodone Screen NEGATIVE NEGATIVE Urine Methadone Screen NEGATIVE NEGATIVE Urine Propoxyphene Screen NEGATIVE NEGATIVE Urine Barbiturates Screen NEGATIVE NEGATIVE Ur Tricyclic Antidepressants Screen NEGATIVE NEGATIVE Urine Phencyclidine Screen NEGATIVE NEGATIVE Urine Amphetamines Screen NEGATIVE NEGATIVE Urine Methamphetamines Screen NEGATIVE NEGATIVE Urine Benzodiazepines Screen NEGATIVE NEGATIVE Urine Cocaine Screen NEGATIVE NEGATIVE Urine Cannabinoids Screen NEGATIVE NEGATIVE My Orders Orders - CAMILLA ESTRADA Ua Culture If Indicated (08/02/21 11:05) Hcg,Qualitative Urine (08/02/21 11:05) Drug Screen Stat (Urine) (08/02/21 11:05) Vital Signs/I&O 08/02/21 08/02/21 10:22 12:05 Temp 36.2 36.2 Pulse 68 68 Resp 18 18 B/P (MAP) 118/77 (91) 118/77 Pulse Ox 98 98 Blood Pressure Mean: 91 Departure Communication (PCP) Patient is calm and cooperative. No active hallucinations. No active suicidal homicidal thoughts. She states she does has thoughts of wanting to hit herself. Similar type behavior in the past. Denies any drug use or alcohol use. Urinalysis negative for infection, with negative drug screen. Patient was evaluated by [facility] who has a outpatient scheduled follow-up for patient for medication adjustment. She agrees with this plan of action. Appropriate safety plan. If any worsening symptoms to return back to ED for further evaluation. Patient was requesting a work note for today. Patient states she has schizophrenia and anxiety. She is unsure what medication she takes. Not able to locate the medication. Impression Primary Impression: Schizophrenia Disposition: 01 HOME, SELF-CARE Condition: Stable Departure-Patient Inst. Decision time for Depature: 11:56 Referrals: [facility] (PCP/Family) Primary Care Physician Patient Instructions: Schizophrenia Work/School Note: Work Release Form Date Seen in the Emergency Department: August 02, 2021 Return to Work: August 04, 2021 CAMILLA ESTRADA August 02, 2021 11:16
[2021-08-02 11:31] LABS: BILIRUBIN,URINE NEGATIVE (NEGATIVE); CLARITY,URINE CLEAR; COLOR,URINE YELLOW; GLUCOSE, URINE (UA) NEGATIVE (NEGATIVE); KETONES,URINE NEGATIVE (NEGATIVE); LEUKOCYTE ESTERASE ,URINE 1+ (NEGATIVE); NITRITE,URINE NEGATIVE (NEGATIVE); PROTEIN,URINE NEGATIVE (NEGATIVE)
[2021-08-02 11:37] LABS: HCG,QUALITATIVE URINE NEGATIVE (NEGATIVE)
[2021-08-02 11:49] LABS: AMPHETAMINE SCREEN, URINE NEGATIVE (NEGATIVE); BARBITURATE SCREEN URINE NEGATIVE (NEGATIVE); BENZODIAZEPINES SCREEN URINE NEGATIVE (NEGATIVE); CANNABINOID SCREEN, URINE NEGATIVE (NEGATIVE); COCAINE SCREEN URINE NEGATIVE (NEGATIVE); METHADONE STAT NEGATIVE (NEGATIVE); OPIATE SCREEN URINE NEGATIVE (NEGATIVE); OXYCODONE STAT NEGATIVE (NEGATIVE); PROPOXYPHENE STAT NEGATIVE (NEGATIVE); TRICYCLIC ANTIDEPRESSANTS SCRE NEGATIVE (NEGATIVE)
[2021-08-02 11:53] LABS: BACTERIA,URINE FEW /HPF
[2021-08-02 12:05] VITALS: BP 118/77
== END 2021-08-02 12:05 | disposition home or self-care (01) ==
LOC: EDUNIT# 10:17 → ER 10:19
DX: F20.9 Schizophrenia, unspecified (principal); F41.9 Anxiety disorder, unspecified; Z79.899 Other long term (current) drug therapy; Z91.14 Patient's other noncompliance with medication regimen
CPT/HCPCS: 80306; 81000; 84703; 99281

== ENCOUNTER 2021-12-25 17:04 | Emergency (ER) | payer OTHER ==
[~2021-12-25] VITALS: Ht 167.7 cm; Wt 65.8 kg
[2021-12-25 17:34] LABS: BILIRUBIN,URINE NEGATIVE (NEGATIVE); CLARITY,URINE CLEAR; COLOR,URINE YELLOW; GLUCOSE, URINE (UA) NEGATIVE (NEGATIVE); KETONES,URINE NEGATIVE (NEGATIVE); LEUKOCYTE ESTERASE ,URINE 1+ (NEGATIVE); NITRITE,URINE NEGATIVE (NEGATIVE); PH,URINE 5.5 (5-9); PROTEIN,URINE 1+ (NEGATIVE)
[2021-12-25 17:36] LABS: BACTERIA,URINE MODERATE /HPF; HCG,QUALITATIVE URINE POSITIVE (NEGATIVE); WBC,URINE 25-50 /HPF
[2021-12-25] MEDS ORDERED: cefTRIAXone 1 GM PRE-MIX 50 ML IV ONE (17:45)
[2021-12-25] MEDS ORDERED: AZITHROMYCIN 250 MG TAB (ZITHROMAX) PO ONE (17:45)
[2021-12-25 17:59] LABS: BASOPHILS % (AUTO) 0 % (0-10); EOSINOPHILS # (AUTO) 0.1 10^3/uL (0.0-0.3); EOSINOPHILS % (AUTO) 1 % (0-10); HEMATOCRIT 33 % (35-52); HEMOGLOBIN 11.2 g/dL (11.5-16.0); LYMPHOCYTES # (AUTO) 2.4 10^3/uL (1.0-4.0); LYMPHOCYTES % (AUTO) 17 % (12-44); MEAN CORPUSCULAR HEMOGLOBIN 30 pg (25-34); MEAN CORPUSCULAR HGB CONC 34 g/dL (32-36); MEAN CORPUSCULAR VOLUME 87 fL (80-99); MEAN PLATELET VOLUME 10.5 fL (9.0-12.2); MONOCYTES # (AUTO) 0.8 10^3/uL (0.0-1.0); MONOCYTES % (AUTO) 6 % (0-12); NEUTROPHILS # (AUTO) 10.7 10^3/uL (1.8-7.8); NEUTROPHILS % (AUTO) 75 % (42-75); PLATELET COUNT 290 10^3/uL (130-400); WHITE BLOOD COUNT 14.2 10^3/uL (4.3-11.0)
[2021-12-25] MEDS ORDERED: NS IV 1000 ML 1,000 ML IV SCH (18:00)
[2021-12-25 18:21] LABS: LYMPHOCYTES % (MANUAL) 17 %; MONOCYTES % (MANUAL) 5 %; NEUTROPHILS % (MANUAL) 78 %
[2021-12-25 18:27] LABS: CALCIUM 8.5 MG/DL (8.5-10.1); CREATININE SERUM 0.52 MG/DL (0.60-1.30); POTASSIUM 3.6 MMOL/L (3.6-5.0)
[2021-12-25 19:32] LABS: AMPHETAMINE SCREEN, URINE POSITIVE (NEGATIVE); BARBITURATE SCREEN URINE NEGATIVE (NEGATIVE); BENZODIAZEPINES SCREEN URINE NEGATIVE (NEGATIVE); CANNABINOID SCREEN, URINE NEGATIVE (NEGATIVE); COCAINE SCREEN URINE NEGATIVE (NEGATIVE); METHADONE STAT NEGATIVE (NEGATIVE); OPIATE SCREEN URINE NEGATIVE (NEGATIVE); OXYCODONE STAT NEGATIVE (NEGATIVE); PROPOXYPHENE STAT NEGATIVE (NEGATIVE); TRICYCLIC ANTIDEPRESSANTS SCRE NEGATIVE (NEGATIVE)
--- NOTE | 2021-12-25 19:32 | ED GU-Female ---
General Chief Complaint: - Reproductive Stated Complaint: VAGINAL PAIN Nursing Triage Note: Patient reports she has had genital pain and burning with urination for 2-3 days. Patient's behavior is erratic, patient pacing and talking to herself in the room, speech pressured, rapid, and rambling. Patient states she used methamphetamines yesterday. Source: patient Exam Limitations: no limitations History of Present Illness Date Seen by Provider: Dec 25, 2021 Time Seen by Provider: 17:30 Initial Comments Patient is a 36 yo female who presents urinary frequency and sp pain after 3 day binge of methamphetamines. Patient is currently homeless. No fever, chills, flank pain, pelvic pain, vaginal pain and bleeding. No other symptoms of complaints. Timing/Duration: this afternoon Severity/Quality: other Location: other Radiation: other Activities at Onset: other Sexual [place] History: other Modifying Factors: Improves With Other Associated Symptoms: other Allergies and Home Medications Allergies Coded Allergies: Sulfa (Sulfonamide Antibiotics) (Verified Allergy, Unknown, 07/09/19) Patient Home Medication List Home Medication List Reviewed: Yes Diphenhydramine in 0.9 % NaCl (Diphenhydramine 50 mg/50 ml-Ns) 50 Mg/50 Ml Piggyback, 50 MG IV TID Prescribed by: GUNNER LAMBERT on 07/10/19 014 Nitrofurantoin Monohyd/M-Cryst (Nitrofurantoin Scott-Mcr 100 mg) 100 Mg Capsule, 100 MG PO BID Prescribed by: SHERRY JACK MD on 05/03/21 1249 Prednisone (Prednisone) 20 Mg Tab, 40 MG PO DAILY Prescribed by: GUNNER LAMBERT on 07/10/19 0144 Review of Systems Review of Systems Constitutional: see HPI EENTM: see HPI Respiratory: see HPI Cardiovascular: see HPI Genitourinary: see HPI Musculoskeletal: see HPI Skin: see HPI Psychiatric/Neurological: See HPI Endocrine: See HPI Hematologic/Lymphatic: See HPI All Other Systemes Reviewed Negative Unless Noted: No Past Bqijjyz-Ebtewr-Kvhrgz Hx Patient Social History Tobacco Use?: No Substance use?: Yes Substance type: Methamphetamine Additional substance use comme: Reports last use yesterday Alcohol Use?: No Pt feels they are or have been: No Immunizations Up To Date First/Initial COVID19 Vaccinat: 2020 Second COVID19 Vaccination [place]: 2020 Third COVID19 Vaccination Date: 2020 Seasonal Allergies Seasonal Allergies: No Past Medical History Surgery/Hospitalization HX: SCHIZOPHRENIA, ANXIETY; HX substance abuse Surgeries: No Respiratory: No Cardiac: No Neurological: No Sexually Transmitted Disease: Yes (HERPES) HIV/AIDS: No Genitourinary: No Gastrointestinal: No Musculoskeletal: No Endocrine: No HEENT: No Cancer: No Psychosocial: Yes ADD/ADHD, Bipolar Integumentary: Yes Herpes Blood Disorders: No Physical Exam Vital Signs Vital Signs - First Documented 12/25/21 17:12 Temp 36.2 Pulse 97 Resp 18 B/P (MAP) 123/82 (96) Pulse Ox 99 O2 Delivery Room Air Capillary Refill : Less Than 3 Seconds Height, Weight, BMI Height: '" Weight: lbs. oz. kg; 23.00 BMI Method: General Appearance: WD/WN, no apparent distress HEENT: PERRL/EOMI Neck: non-tender, full range of motion, supple Cardiovascular: regular rate, rhythm Respiratory: lungs clear Gastrointestinal: non tender, soft Genital/Rectal: other (exam deferred.) Extremities: non-tender Neurologic/Psychiatric: no motor/sensory deficits, alert, normal mood/affect Focused Exam Sepsis Stage: Ruled Out Progress/Results/Core Measures Suspected Sepsis SIRS Temperature: Pulse: 97 Respiratory Rate: 18 Laboratory Tests 12/25/21 17:58: White Blood Count 14.2H Blood Pressure 123 /82 Mean: 96 Laboratory Tests 12/25/21 17:58: Creatinine 0.52L, Platelet Count 290 Results/Orders Lab Results Laboratory Tests Test 12/25/21 17:12 12/25/21 17:58 12/25/21 19:19 Range/Units Urine Color YELLOW Urine Clarity CLEAR Urine pH 5.5 5-9 Urine Specific [place] >=1.030 1.016-1.022 Urine Protein 1+ H NEGATIVE Urine Glucose (UA) NEGATIVE NEGATIVE Urine Ketones NEGATIVE NEGATIVE Urine Nitrite NEGATIVE NEGATIVE Urine Bilirubin NEGATIVE NEGATIVE Urine Urobilinogen 0.2 < = 1.0 MG/DL Urine Leukocyte Esterase 1+ H NEGATIVE Urine RBC (Auto) 1+ H NEGATIVE Urine RBC NONE /HPF Urine WBC 25-50 H /HPF Urine Renal Epithelial Cells 5-10 /HPF Urine Crystals NONE /LPF Urine Bacteria MODERATE H /HPF Urine Casts NONE /LPF Urine Mucus NEGATIVE /LPF Urine Culture Indicated YES Urine Test POSITIVE NEGATIVE White Blood Count 14.2 H 4.3-11.0 10^3/uL Red Blood Count 3.76 L 3.80-5.11 10^6/uL Hemoglobin 11.2 L 11.5-16.0 g/dL Hematocrit 33 L 35-52 % Mean Corpuscular Volume 87 80-99 fL Mean Corpuscular Hemoglobin 30 25-34 pg Mean Corpuscular Hemoglobin Concent 34 32-36 g/dL Red Cell Distribution Width 13.2 10.0-14.5 % Platelet Count 290 130-400 10^3/uL Mean Platelet Volume 10.5 9.0-12.2 fL Immature Granulocyte % (Auto) 0 % Neutrophils (%) (Auto) 75 42-75 % Lymphocytes (%) (Auto) 17 12-44 % Monocytes (%) (Auto) 6 0-12 % Eosinophils (%) (Auto) 1 0-10 % Basophils (%) (Auto) 0 0-10 % Neutrophils # (Auto) 10.7 H 1.8-7.8 10^3/uL Lymphocytes # (Auto) 2.4 1.0-4.0 10^3/uL Monocytes # (Auto) 0.8 0.0-1.0 10^3/uL Eosinophils # (Auto) 0.1 0.0-0.3 10^3/uL Basophils # (Auto) 0.0 0.0-0.1 10^3/uL Immature Granulocyte # (Auto) 0.1 0.0-0.1 10^3/uL Neutrophils % (Manual) 78 % Lymphocytes % (Manual) 17 % Monocytes % (Manual) 5 % Sodium Level 136 135-145 MMOL/L Potassium Level 3.6 3.6-5.0 MMOL/L Chloride Level 101 98-107 MMOL/L Carbon Dioxide Level 22 21-32 MMOL/L Anion Gap 13 5-14 MMOL/L Blood Urea Nitrogen 11 7-18 MG/DL Creatinine 0.52 L 0.60-1.30 MG/DL Estimat Glomerular Filtration Rate 123 BUN/Creatinine Ratio 21 Glucose Level 73 70-105 MG/DL Calcium Level 8.5 8.5-10.1 MG/DL Human Chorionic Gonadotropin, Quant 8190 H <5 MIU/ML My Orders Orders - YIMI DENG DO Ua Culture If Indicated (12/25/21 17:28) Chlamydia Trachomatis Urine (12/25/21 17:28) Hcg,Qualitative Urine (12/25/21 17:28) Neis Edmund Dna Urine Test (12/25/21 17:28) Urine Culture (12/25/21 17:12) Drug Screen Stat (Urine) (12/25/21 17:43) Cbc With Automated Diff (12/25/21 17:43) Basic Metabolic Panel (12/25/21 17:43) Ceftriaxone 1 Gm Pre-Mix (Rocephin 1 Gm (12/25/21 17:45) Azithromycin Tablet (Zithromax Tablet) (12/25/21 17:45) Heart Tones (12/25/21 17:46) Ns Iv 1000 Ml (Sodium Chloride 0.9%) (12/25/21 18:00) Manual Differential (12/25/21 17:58) Hcg,Quantitative (12/25/21 18:33) Medications Given in ED Current Medications Medications Dose Ordered Sig/Constantin Route Start Time Stop Time Status Last Admin Dose Admin Azithromycin 1,000 mg ONCE ONCE PO 12/25/21 17:45 12/25/21 17:46 DC 12/25/21 18:07 1,000 MG Ceftriaxone Sodium/Dextrose 50 ml @ 100 mls/hr ONCE ONCE IV 12/25/21 17:45 12/25/21 18:14 DC 12/25/21 18:07 100 MLS/HR Vital Signs/I&O 12/25/21 17:12 Temp 36.2 Pulse 97 Resp 18 B/P (MAP) 123/82 (96) Pulse Ox 99 O2 Delivery Room Air Capillary Refill : Less Than 3 Seconds Blood Pressure Mean: 96 Departure Communication (Admissions) Patient abdomen is soft, non-sx. IVF and abx given. FHTs in 120's out patient. Impression Primary Impression: Methamphetamine abuse Additional Impression: UTI (urinary tract infection) Disposition: 01 HOME, SELF-CARE Condition: Stable Departure-Patient Inst. Decision time for Depature: 19:36 Referrals: [facility] (PCP/Family) Primary Care Physician Patient Instructions: Methamphetamine, Urinary Tract Infection, Adult (DC) Add. Discharge Instructions: Please increase fluids and take newl antibiotics as directed. Methamphetamines please you and your baby at high risk of complication and . Abstain from all drug use and follow-up with outpatient rehab and your [facility]. . Return to the ED if new or concerning symptoms All discharge instructions reviewed with patient and/or family. Voiced understanding. Scripts Cephalexin (Cephalexin) 500 Mg Tablet 500 MG PO TID, #21 TAB Prov: YIMI DENG DO 12/25/21 YIMI DENG DO Dec 25, 2021 19:32
[2021-12-25] MEDS ORDERED: CEPH500T PO (19:43)
[2021-12-25] MEDS ORDERED: HALOPERIDOL 5 MG/ML (HALDOL) VIAL IM ONE (19:45)
[2021-12-26 10:17] VITALS: BP 110/68
== END 2021-12-26 10:17 | disposition home or self-care (01) ==
LOC: EDUNIT# 17:04 → ER FS 17:06
DX: N39.0 Urinary tract infection, site not specified (principal); F15.10 Other stimulant abuse, uncomplicated; Z28.310 Unvaccinated for COVID-19
CPT/HCPCS: 36415; 80048; 80306; 81000; 84702; 84703; 85007; 85027; 87077; 87088; 87491; 87591; 96365; 96372